=== PATIENT | female | born 2000 | race Caucasian/White ===

== ENCOUNTER 2018-03-28 16:01 | Emergency (ER) | payer OTHER ==
[2018-03-28 17:51] VITALS: BP 111/73; PULSE 73; RESP 18; TEMP 98.3; O2SAT 99
--- NOTE | 2018-03-28 18:26 | ED PDOC ---
HPI: Psych/Substance Abuse Time Seen by Provider: 03/28/18 16:56 Chief Complaint (Nursing): Psychiatric Evaluation Chief Complaint (Provider): Sent by [facility] for psychiatric evaluation History Per: Patient, Family History/Exam Limitations: no limitations Onset/Duration Of Symptoms: Days Current Symptoms Are (Timing): Better Additional Complaint(s): Pt states she was stresed about lvining in the [place] and staying here for her family or moving to another country with her b/f. Pt had cut herself and wassent by school. Past Medical History Reviewed: Historical Data, Nursing Documentation, Vital Signs Vital Signs: Last Vital Signs Temp 98.3 F 03/28/18 16:44 Pulse 73 03/28/18 16:44 Resp 18 03/28/18 16:44 BP 111/73 03/28/18 16:44 Pulse Ox 99 03/28/18 16:44 - Medical History PMH: No Chronic Diseases - Surgical History Surgical History: No Surg Hx - Family History Family History: States: No Known Family Hx - Living Arrangements Living Arrangements: With Family - Social History Current smoker - smoking cessation education provided: No Alcohol: None Drugs: Denies - Allergies Allergies/Adverse Reactions: Allergies Allergy/AdvReac Type Severity Reaction Status Date / Time No Known Allergies Allergy Verified 03/28/18 16:44 Review of Systems ROS Statement: Except As Marked, All Systems Reviewed And Found Negative Constitutional: Negative for: Fever, Chills Cardiovascular: Negative for: Chest Pain Respiratory: Negative for: Cough Gastrointestinal: Negative for: Nausea, Vomiting, Abdominal Pain, Diarrhea Psych: Negative for: Depression, Psychosis, Suicidal ideation Physical Exam - Reviewed Nursing Documentation Reviewed: Yes Vital Signs Reviewed: Yes - Physical Exam Appears: Positive for: Well, Non-toxic, No Acute Distress Head Exam: Positive for: ATRAUMATIC, NORMAL INSPECTION, NORMOCEPHALIC Skin: Positive for: Normal Color, Warm, DRY Eye Exam: Positive for: Normal appearance ENT: Positive for: Normal ENT Inspection Neck: Positive for: Normal, Painless ROM Cardiovascular/Chest: Positive for: Regular Rate, Rhythm Respiratory: Positive for: CNT, Normal Breath Sounds Back: Positive for: Normal Inspection Extremity: Positive for: Normal ROM Neurologic/Psych: Positive for: Alert, Oriented - ECG O2 Sat by Pulse Oximetry: 99 Medical Decision Making Medical Decision Making: Crisis evaluation completed. Disposition - Clinical Impression Clinical Impression: Adjustment disorder - Disposition Disposition: Routine/Home Disposition Time: 18:26 Condition: STABLE Instructions: Adjustment Disorder Forms: [facility] ([place]), [facility] ED School/Work Excuse
== END 2018-03-28 18:54 | disposition home or self-care (01) ==
LOC: H.ER 16:01
DX: F43.20 Adjustment disorder, unspecified (principal)